=== PATIENT | male | born 1975 | race Caucasian/White ===

== ENCOUNTER 2017-10-03 01:02 | Inpatient (IN) | payer BC ==
[2017-10-03] MEDS: IV NORMAL SALINE 1000ML BAG 1,000 ML IV ×4 (01:30→10:17)
[2017-10-03] MEDS: IOHEXOL 300 MG/ML 100ML VIAL. IV (01:30)
[2017-10-03 01:40] LABS: ADD MAN DIFF? NO
[2017-10-03 01:42] LABS: BASO % 1 % (0-3); EOS # 0.1 x10^3/uL (0.0-0.7); EOS % 1 % (0-3); HEMATOCRIT 45.2 % (39.0-53.0); HEMOGLOBIN 16.5 g/dL (13.0-17.5); LYMPH # 1.8 x10^3/uL (1.0-4.8); LYMPH % 30 % (24-48); MEAN CORPUSCULAR HEMOGLOBIN 33 pg (25-35); MEAN CORPUSCULAR HGB CONC 37 g/dL (31-37); MEAN CORPUSCULAR VOLUME 90 fL (79-100); MONO # 0.3 x10^3/uL (0.0-1.1); MONO % 5 % (0-9); NEUT # 3.8 x10^3uL (1.8-7.7); NEUT % 63 % (31-73); PLATELET COUNT 429 x10^3/uL (140-400); RED BLOOD COUNT 5.03 x10^6/uL (4.30-5.70); RED CELL DISTRIBUTION WIDTH 12.4 % (11.5-14.5)
[2017-10-03] MEDS ORDERED: CONTRAST GIVEN. MC (01:45)
[2017-10-03 01:53] LABS: ANION GAP 9 (6-14); BLOOD UREA NITROGEN 14 mg/dL (8-26); BUN/CREATININE RATIO 14 (6-20); CALCIUM 9.2 mg/dL (8.5-10.1); CARBON DIOXIDE 27 mmol/L (21-32); CHLORIDE 105 mmol/L (98-107); GFR 81.2; GLUCOSE 119 mg/dL (70-99); POTASSIUM 3.9 mmol/L (3.5-5.1); SODIUM 141 mmol/L (136-145)
[2017-10-03 01:58] LABS: ALBUMIN 3.9 g/dL (3.4-5.0); ALBUMIN/GLOBULIN RATIO 1.3 (1.0-1.7); ALK PHOS 98 U/L (46-116); ALT (SGPT) 23 U/L (16-63); AST (SGOT) 15 U/L (15-37); TOTAL BILIRUBIN 0.5 mg/dL (0.2-1.0)
[2017-10-03 02:12] LABS: TROPONINI 0.056 ng/mL (0.000-0.055)
[2017-10-03] MEDS ORDERED: ONDANSETRON PF 4 MG/2 ML VIAL. IV (02:45)
[2017-10-03] MEDS ORDERED: ACETAMINOPHEN 325 MG TABLET. PO (02:45)
[2017-10-03] MEDS: ASPIRIN CHEWABLE 81 MG TABLET. PO (03:15)
[2017-10-03 08:39] LABS: TROPONINI 0.056 ng/mL (0.000-0.055)
[2017-10-03] MEDS: ANTI-COAG MONITOR BY PHARMACY. MC (15:39)
[2017-10-03] MEDS: diphenhydrAMINE HCL 25 MG CAPSULE PO (22:55)
[2017-10-04 05:06] LABS: PLATELET COUNT 374 x10^3/uL (140-400)
[2017-10-04 05:28] LABS: MAGNESIUM 2.1 mg/dL (1.8-2.4)
[2017-10-04 05:28] LABS: CHOLESTEROL 131 mg/dL (0-200); HDLC 41 mg/dL (40-60); LDLC 65 mg/dL (0-100); NON-HDL CHOLESTEROL 90 mg/dL (0-129); TRIGLYCERIDES 126 mg/dL (0-150); VLDLC 25 mg/dL (0-40)
[2017-10-04 05:36] LABS: THYROID STIM HORMONE (TSH) 1.414 uIU/mL (0.358-3.74)
[2017-10-04 05:57] LABS: CHOLESTEROL/HDL RATIO 3.2
[2017-10-04] MEDS: METOPROLOL SUCC 24HR ER 25 MG TAB.ER.24H. PO (12:25)
[2017-10-04] MEDS: ANTI-COAG MONITOR BY PHARMACY. MC (16:32)
== END 2017-10-04 14:20 | disposition home or self-care (01) | DRG 312 ==
LOC: ER 01:02 → 2 NORTH 02:45
DX: R55 Syncope and collapse (principal); I10 Essential (primary) hypertension; I45.10 Unspecified right bundle-branch block; R74.8 Abnormal levels of other serum enzymes
CPT/HCPCS: 36415; 71275; 78452; 80053; 80061; 83735; 84443; 84484; 85025; 85049; 93005; 93017; 93306; 96361; 96372; 96374; 96376; 99291; A9500; J1650; J7030; Q0163; Q9967